=== PATIENT | female | born 1980 | race Two or more races ===

== ENCOUNTER 2017-01-17 14:17 | Emergency (ER) | payer OTHER, MEDICAID ==
[2017-01-17] MEDS ORDERED: IBUPROFEN 800 MG TABLET ONE (15:21)
[2017-01-17] MEDS ORDERED: DIAZEPAM 5 MG TABLET ONE (15:22)
[2017-01-17] MEDS ORDERED: HYDROCODONE/ACETAMINOPHEN 5/325MG TABLET ONE (15:22)
[2017-01-17 15:27] LABS: HCG,QUALITATIVE URINE NEGATIVE
[2017-01-17 15:44] LABS: URINE BILIRUBIN NEGATIVE (NEGATIVE); URINE BLOOD TRACE (NEGATIVE); URINE GLUCOSE (UA) NEGATIVE (NEGATIVE); URINE LEUKOCYTE ESTERASE NEGATIVE (NEGATIVE); URINE NITRITE NEGATIVE (NEGATIVE); URINE PROTEIN NEGATIVE (NEGATIVE); URINE UROBILINOGEN NORMAL (0-1 mg/dl)
[2017-01-17 15:48] LABS: URINE APPEARANCE CLEAR; URINE COLOR YELLOW
[2017-01-17 15:59] LABS: URINE BACTERIA 0; URINE EPITHELIAL CELLS 0-1 /hpf; URINE RBC 0-1 /hpf; URINE WBC NEG /hpf
== END 2017-01-17 16:23 | disposition home or self-care (01) ==
LOC: ED 14:17
DX: S39.012A Strain of muscle, fascia and tendon of lower back, initial encounter (principal); W01.0XXA Fall on same level from slipping, tripping and stumbling without subsequent striking against object, initial encounter; Y93.01 Activity, walking, marching and hiking; Y92.69 Other specified industrial and construction area as the place of occurrence of the external cause; Y99.0 Civilian activity done for income or pay
CPT/HCPCS: 81025; 81001; 99283 ×2; A9270 ×3